=== PATIENT | male | born 1970 | race Asian ===

== ENCOUNTER 2017-12-06 10:44 | Outpatient (CLI) | payer BC | END 2017-12-06 20:55 | disposition home or self-care (01) | LOC: LABW 10:44 | DX: K80.51 Calculus of bile duct without cholangitis or cholecystitis with obstruction (principal) | CPT/HCPCS: 36415; 80076 ==

== ENCOUNTER 2018-01-17 08:50 | Outpatient (CLI) | payer BC | END 2018-01-17 23:17 | disposition home or self-care (01) | LOC: LABW 08:50 | DX: K83.0 Cholangitis (principal); Z80.0 Family history of malignant neoplasm of digestive organs | CPT/HCPCS: 36415; 80076 ==

== ENCOUNTER 2018-03-23 08:30 | Outpatient (CLI) | payer BC | END 2018-03-23 19:14 | disposition home or self-care (01) | LOC: LABW 08:30 | DX: K80.51 Calculus of bile duct without cholangitis or cholecystitis with obstruction (principal) | CPT/HCPCS: 36415; 80076 ==

== ENCOUNTER 2018-05-30 08:30 | Outpatient (CLI) | payer BC | END 2018-05-30 18:50 | disposition home or self-care (01) | LOC: LABW 08:30 | DX: K80.51 Calculus of bile duct without cholangitis or cholecystitis with obstruction (principal); K83.01 Primary sclerosing cholangitis | CPT/HCPCS: 36415; 80076 ==

== ENCOUNTER 2018-10-31 10:09 | Outpatient (CLI) | payer BC | END 2018-10-31 19:10 | disposition home or self-care (01) | LOC: LABW 10:09 | DX: K83.01 Primary sclerosing cholangitis (principal); K80.51 Calculus of bile duct without cholangitis or cholecystitis with obstruction | CPT/HCPCS: 36415; 80076 ==

== ENCOUNTER 2019-03-06 07:40 | Outpatient (CLI) | payer BC | END 2019-03-06 23:39 | disposition home or self-care (01) | LOC: LABW 07:40 | DX: K80.51 Calculus of bile duct without cholangitis or cholecystitis with obstruction (principal); K83.01 Primary sclerosing cholangitis | CPT/HCPCS: 36415; 80076 ==